=== PATIENT | male | born 1940 | race Caucasian/White ===

== ENCOUNTER 2017-05-27 20:54 | Emergency (ER) | payer MEDICARE ==
[~2017-05-27] VITALS: Ht 177.8 cm; Wt 89.8 kg
[~2017-05-27 20:54] MED LIST: GENTAMICIN O5 ML/BOT OP; HYDROCODONE1 TABLET PO
--- OUTSIDE RECORDS SUMMARY | 2017-05-27 21:02 | External Medical Summary Rpt | CCD ---
Author Author Conduent Organization Conduent Address Unknown Phone Unavailable Purpose Continuity of Care Document - through 2016
--- OUTSIDE RECORDS SUMMARY | 2017-05-27 21:02 | External Medical Summary Rpt | CCD ---
Author Author , JEANNE ANGEL Address Unknown Phone [email or web address] Immunization Name Date Rout CVX Reac Dose Comm Prov Is Faci e tion ent ider Refu lity Give sed n Infl 10-0 150 0.5 Hist KHAF No RITE uenz 3-20 mL oric TRIPP AID0 a 16 al AYMA 3938 Quad Info N Inj rmat ion - Sour ce Unsp ecif ied Td 03-0 Intr 9 999 Hist H149 No H149 (ti 4-19 amus oric lt), 97 cula al r Info adso rmat rbed ion - Sour ce Unsp ecif ied
--- OUTSIDE RECORDS SUMMARY | 2017-05-27 21:02 | External Medical Summary Rpt ---
Author Author NAHUMDREW Production, JEANNE Production Organization JEANNE Production Address Unknown Phone Unavailable Results Calcium.ionized [Mass/volume] in Serum or Plasma by Ion-selective membrane electrode (ISE) Observa Value Referen Units Interpr Notes Date tion ce etation Range Calcium.i 4.5 - 5.6 mg/dL No Performed Jan 04 onized informati at: CB 2016 1:50 [Mass/vol on in - [facility] PM ume] in source Serum or data [id number] Plasma by 0 [facility] membrane [id number] electrode Lab (ISE) Director: David Kelly PhD, Phone: [phone] 25-Hydroxyvitamin D [Mass/volume] in Serum or Plasma Observa Value Referen Units Interpr Notes Date tion ce etation Range 25-Hydrox 30.0 - ng/mL No Vitamin D Jan 04 yvitamin 100.0 informati 2016 1:50 D on in deficienc PM [Mass/vol source y has ume] in data been Serum or defined Plasma by the [place] [facility] e and an Endocrine Society practice guideline as alevel of serum 25-OH vitamin D less than 20 ng/mL (1,2).The Endocrine Society went on to further define vitamin Dinsuffic iency as a level between 21 and 29 ng/mL (2).1. IOM (Institut e of Medicine) . 2010. Dietary reference intakes for calcium and D. [place]: TheNation al Academies Press.2. Cris MF, Leann [place], [place] Bernard CARR, et al.Evalua tion, treatment , and preventio n of vitamin Ddeficien cy: an Endocrine Society clinical practiceg uideline. JCEM. 2010; 96(7):191 1-30.Perf ormed at: CB - [facility] [id number] [place], [place] [id number] Netsuite Developer: David Kelly PhD, Phone: [phone] Parathyrin.intact [Mass/volume] in Serum or Plasma Observa Value Referen Units Interpr Notes Date tion ce etation Range Parathyri 15 - 65 pg/mL No Performed Jan 04 n.intact informati at: CB 2017 1:50 [Mass/vol on in - [facility] PM ume] in source Serum or data [address] [address] Plasma 0 [place], [place] [id number] Netsuite Developer: David Kelly PhD, Phone: [phone] Renal function 2000 panel in Serum or Plasma Observa Value Referen Units Interpr Notes Date ti ce etation Range Albumin 3.4 - 5.0 gm/dL Normal No Jan 04 [Mass/vol informati 2016 1:50 ume] in on in PM Serum or source Plasma data Urea 7 - 18 mg/dL High No Jan 04 nitrogen informati 2016 1:50 [Mass/vol on in PM ume] in source Serum or data Plasma Calcium 8.5 - mg/dL Normal No Jan 04 [Mass/vol 10.1 informati 2016 1:50 ume] in on in PM Serum or source Plasma data Chloride 98 - 107 mmoL/L Normal No Jan 04 [Moles/vo informati 2016 1:50 lume] in on in PM Serum or source Plasma data Carbon 21.0 - mmoL/L Normal No Jan 04 dioxide, 32.0 informati 2016 1:50 total on in PM [Moles/vo source lume] in data Serum or Plasma Creatinin 0.70 - mg/dL High No Jan 04 e 1.30 informati 2017 1:50 [Mass/vol on in PM ume] in source Serum or data Plasma Estimated >60 ML/MIN No REFERENCE Jan 04 informati RANGE: 2017 1:50 glomerula on in >60 PM r source ML/MIN/1. filtratio data 73 SQUARE n rate METERSIf (GF this patient is -A merican, then multiply theresult by 1.210. Glucose 74 - 106 mg/dL High No Jan 04 [Mass/vol informati 2016 1:50 ume] in on in PM Serum or source Plasma data Potassium 3.5 - 5.1 mmoL/L Normal No Jan 04 informati 2017 1:50 [Moles/vo on in PM lume] in source Serum or data Plasma Sodium 136 - 145 mmoL/L Normal No Jan 04 [Moles/vo inform2016 1:50 lume] in on in PM Serum or source Plasma data Phosphate 2.4 - 4.9 mg/dL Normal No Jan 042016 1:50 [Moles/vo on in PM lume] in source Unspecifi data ed specimen Urate [Mass/volume] in Serum or Plasma Observa Value Referen Units Interpr Notes Date tion ce etation Range Urate 2.6 - 7.2 mg/dL Normal No Jan 04 [Mass/vol inform2016 1:50 ume] in on in PM Serum or source Plasma data CBC W Auto Differential panel in Blood Observa Value Referen Units Interpr Notes Date tion ce etation Range Basophils 0 - 0.2 K/MM3 Normal No Jan 042016 1:50 [#/volume on in PM ] in source Blood by data Automated count Basophils 0.1 - 2.0 % Normal No Jan 04 / informati 2016 1:50 leukocyte on in PM s in source Blood by data Automated count Eosinophi 0.0 - 0.4 K/mm3 Normal No Jan 04 ls informati 2016 1:50 [#/volume on in PM ] in source Blood by data Automated count Eosinophi 0.1 - % Normal No Jan 04 ls/100 12.0 informati 2016 1:50 leukocyte on in PM s in source Blood by data Automated count Granulocy 1.3 - 8.0 K/mm3 Normal No Jan 04 migel 2016 1:50 [#/volume on in PM ] in source Blood by data Automated count Granulocy 37.0 - % Normal No Jan 04 migel/100 80.0 informati 2016 1:50 leukocyte on in PM s in source Blood by data Automated count Hematocri 42.0 - % Low No Jan 04 t [Volume 52.0 informati 2016 1:50 on in PM Fraction] source of Blood data Hemoglobi 14.1 - g/dL Low No Jan 04 n 18.0 informati 2016 1:50 [Mass/vol on in PM ume] in source Blood data Lymphocyt 0.7 - 4.5 K/mm3 Normal No Jan 04 es 2016 1:50 [#/volume on in PM ] in source Unspecifi data ed specimen by Automated count Lymphocyt 10 - 50 % Normal No Jan 04 es informati 2016 1:50 [#/volume on in PM ] in source Unspecifi data ed specimen by Automated count Erythrocy 27 - 31.2 pg Normal No Jan 04 te mean inform2016 1:50 corpuscul on in PM ar source hemoglobi data n [Entitic mass] Erythrocy 31.8 - g/dl Normal No Jan 04 te mean 35.4 informati 2016 1:50 corpuscul on in PM ar source hemoglobi data n concentra tion [Mass/vol ume] by Automated count Erythrocy 82.2 - fl Normal No Jan 04 te mean 97.8 informati 2016 1:50 corpuscul on in PM ar volume source [Entitic data volume] by Automated count Monocytes 0.1 - 1.0 K/mm3 Normal No Jan 04 inform2016 1:50 [#/volume on in PM ] in source Blood by data Automated count Monocytes 1.7 - 9.3 % Normal No Jan 04 /100 informati 2016 1:50 leukocyte on in PM s in source Blood by data Automated count Platelet 7.4 - fl Normal No Jan 04 mean 10.4 informati 2016 1:50 volume on in PM [Entitic source volume] data in Blood by Automated count Platelets 142 - 424 K/mm3 Normal No Jan 04 inform2016 1:50 [#/volume on in PM ] in source Blood data Erythrocy 4.6 - 6.2 M/mm3 Low No Jan 04 migel informati 2016 1:50 [#/volume on in PM ] in source Amniotic data fluid Erythrocy 11.5 - % Normal No Jan 04 te 17.5 informati 2016 1:50 distribut on in PM ion width source [Entitic data volume] by Automated count Leukocyte 4.8 - K/MM3 Normal No Jan 04 s 10.8 informati 2016 1:50 [#/volume on in PM ] in source Blood data Creatinine [Mass/volume] in Urine Observa Value Referen Units Interpr Notes Date tion ce etation Range Creatinin 20 - 370 mg/dL Normal No Jan 04 e inform2016 1:50 [Mass/vol on in PM ume] in source Urine data Protein [Presence] in Urine Observa Value Referen Units Interpr Notes Date tion ce etation Range Protein 87.3 0.0 - mg/dL High No Jordan 30 15.0 informa 2017 [Presen tion in 1:50 PM ce] in source Urine data EK EKG 12 LEAD Observa Value Referen Units Interpr Notes Date tion ce etation Range Station No No No No Jan 22 daisy ECG informa informa informa informa 2016 tion in tion in tion in tion in 1:06 PM Study\. source source source source br\St. data data data data Elizabe th Edgewo[employer] d\.br\I nterpre tive Stateme nts\.br \Sinus rhythm with 1st degree A-V block.\ .br\Poo r R wave progres marc - probabl e normal variant \.br\Ab normal ECG\.br \NO OLD EKGS FOR COMPARI SON\.br \Electr onicall y Signed On 01-23-20 15:28:5 3 EDT by Mitchell ernst MD Glu Bed Observa Value Referen Units Interpr Notes Date tion ce etation Range GLU BED 150 70 - mg/dL High No Jan 22 100 informa 2016 tion in 12:59 source PM data BMP Observa Value Referen Units Interpr Notes Date tion ce etation Range Sodium 140 136 - mmol/L No No Jan 22 145 informa informa 2016 tion in tion in 2:13 PM source source data data Potassi 4.3 3.5 - mmol/L No No Jan 22 um 5.0 informa informa 2016 [Moles/ tion in tion in 2:13 PM volume] source source in data data Serum or Plasma Chlorid 103 98 - mmol/L No No Jan 22 e 107 informa informa 2016 tion in tion in 2:13 PM source source data data Carbon 25 22 - 29 mmol/L No No Jan 22 dioxide informa informa 2016 , total tion in tion in 2:13 PM source source [Moles/ data data volume] in Serum or Plasma Anion 12 7 - 16 mmol/L No No Jan 22 Gap informa informa 2016 tion in tion in 2:13 PM source source data data CALCIUM 10.0 8.8 - mg/dL No No Jan 22 .TOTAL 10.2 informa informa 2016 tion in tion in 2:13 PM source source data data Glucose 144 82 - mg/dL High No Darnell 18 Lvl 100 informa 2016 tion in 2:13 PM source data BUN 23 8 - 23 mg/dL No No Jan 22 informa informa 2016 tion in tion in 2:13 PM source source data data Creatin 2.10 0.67 - mg/dL High No Jan 22 ine 1.30 informa 2016 tion in 2:13 PM source data GFR Afr 38 No No No No Jan 22 Am informa informa informa informa 2016 tion in tion in tion in tion in 2:13 PM source source source source data data data data GFR Non 31 No No No No Jan 22 Afr Am informa informa informa informa 2016 tion in tion in tion in tion in 2:13 PM source source source source data data data data
--- OUTSIDE RECORDS SUMMARY | 2017-05-27 21:02 | External Medical Summary Rpt | CCD ---
Author Author , JEANNE ANGEL Address Unknown Phone [email or web address] Immunization Name Date Rout CVX Reac Dose [...]
--- OUTSIDE RECORDS SUMMARY | 2017-05-27 21:02 | External Medical Summary Rpt | CCD ---
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
--- OUTSIDE RECORDS SUMMARY | 2017-05-27 21:02 | External Medical Summary Rpt ---
[...] PM ume] in source Serum or data [id number] Plasma by 0 [facility] membrane [id number] electrode Lab (ISE) Director: David Kelly PhD, Phone: [phone] 25-Hydroxyvitamin D [Mass/volume] in Serum or Plasma Observa Value Referen Units Interpr Notes Date tion ce etation Range 25-Hydrox 30.0 - ng/mL No Vitamin D Jan 04 yvitamin 100.0 informati 2016 1:50 D on in deficienc PM [Mass/vol source y has ume] in data been Serum or defined Plasma by the [place] [facility] e and an Endocrine Society practice guideline [...] 96(7):191 1-30.Perf ormed at: CB - [facility] [id number] [place], [place] [id number] Computer Drafter: David Kelly PhD, Phone: [phone] Parathyrin.intact [Mass/volume] in Serum or Plasma Observa Value Referen Units Interpr Notes Date tion ce etation Range Parathyri 15 - 65 pg/mL No Performed Jan 04 n.intact informati at: CB 2017 1:50 [Mass/vol on in - [facility] PM ume] in source Serum or data [address] [id number] Plasma 0 [place], [place] [id number] Computer Drafter: David Kelly PhD, Phone: [phone] Renal function 2000 panel in Serum [...]
--- OUTSIDE RECORDS SUMMARY | 2017-05-27 21:02 | External Medical Summary Rpt | CCD ---
Author Author , JASSON ANGEL Address Unknown Phone [email or web address] Purpose Continuity of Care Document - 01-23-2016 [...]
[2017-05-27] MEDS ORDERED: METFORMIN HCL1000 MG PO (21:03)
[2017-05-27] MEDS ORDERED: AMLODIPINE BES10 MG PO (21:03)
[2017-05-27] MEDS ORDERED: TIMOLOL MALEATE10 M1 OP (21:03)
[2017-05-27] MEDS ORDERED: PRAMIPEXOLE0.125 M1 PO (21:04)
[2017-05-27] MEDS ORDERED: SERTRALINE25 MG PO (21:05)
[2017-05-27] MEDS ORDERED: FENOFIBRATE145 MG PO (21:06)
[2017-05-27] MEDS ORDERED: JANUVIA100 MG PO (21:06)
[2017-05-27] MEDS ORDERED: BRIMONIDINE TAR10 ML OP (21:07)
[2017-05-27 21:25] LABS: LYMPH % 30.9 % (10-50)
[2017-05-27 22:01] LABS: BUN 35 mg/dL (7-18)
[2017-05-27 22:02] LABS: GFR (ESTIMATED) 29 ML/MIN (>60)
--- NOTE | 2017-05-27 22:11 | Emergency Room Report ---
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 C COLLAR INPLACE, BACK BOARD. 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 N Clinical Suspician of Infection? N Mental Status: 1 - Regular (Normal Baseline) Sepsis Risk:Low Sepsis Risk Have you (or family members/close friends) recently traveled outside the [place]? N If Yes, where/when: Have you had exposure to infectious disease within the past month? N TB? Other? Specify: Source patient, RN notes reviewed, family, old records Exam Limitations no limitations Comment trip injury with head and facial injury w/o def loc - he has no focal neuro sx - Cardiac Chest Pain Chest pain indicative of cardiac No Timing/Duration this evening Severity moderate ALLERGIES Coded Allergies: Penicillins (Mild, 05/27/17) Home Medications Reported Medications Timolol Maleate (Timolol Maleate 10 Ml) 0.2 ML OP BID #10 Amlodipine Besylate (Amlodipine Besylate) 10 MG PO DAILY #30 METFORMIN HCL (Metformin 1000MG) 1,000 MG PO BID #30 PRAMIPEXOLE DI-HCL (Pramipexole Dihydrochloride) 0.125 MG PO DAILY #90 Sertraline Hcl (Sertraline HCl) 25 MG PO DAILY #30 FENOFIBRATE NANOCRYSTALLIZED (Fenofibrate) 145 MG PO DAILY #30 Sitagliptin Phosphate (Januvia 100MG) 100 MG PO DAILY #30 Brimonidine Tartrate 5 ML OP DAILY #10 History Medical History General CAD? No Angina: No [place]: No Hypertension? Yes Hyperlipidemia? No CHF? No DVT? No PE? No COPD? No Asthma? No Anemia? No GERD? No Gastric ulcers? No GI Bleed? No Hernia? No Hypothyroidism? No CVA? No Seizures? No Diabetes? Yes Insulin Dependent: No Insulin Pump: No Home FSBS? No Renal Insuffiency? No End Stage Renal Disease? No UTI? No Stones? Yes BPH? No GB Disease: No Nephritic Syndrome? No Asplenia? No Hepatitis? No Sickle Cell Disease? No Arthritis? No Migraines? No Cataracts? No Glaucoma? No MRSA? No HIV? No TB? No Anxiety? No Depression? No Cancer? No More? No Immunization Hx DT/Tetanus 1-4 YRS Surgical Hx Previous Surgery?Y Hemorrhoid LEFT BREAST 1961 PACEMAKER Family History Family Hx Diabetes Yes CAD Yes Hypertension No Hyperlipidemia No Cancer Yes TB No Social History Smoking Hx Smoker: Former Smoker Tobacco: No Packs/day < 1 Pack Alcohol Alcohol: No Drugs none Review of Systems All Other Systems Reviewed and Negative Constitutional denies fever Eyes denies drainage ENT denies: ear discharge. Respiratory denies cough, denies shortness of breath, denies wheezing Cardiovascular denies chest pain, denies palpitations, denies syncope Gastrointestinal denies abdominal pain, denies diarrhea, denies vomiting Genitourinary denies: dysuria, frequency, hesitancy, hematuria. Musculoskeletal see HPI, denies back pain, denies joint pain, neck pain Skin see HPI, other Psychiatric/Neurological see HPI, headache, denies seizure Physical Exam Vital Signs Vital Signs Date Time Temp Pulse Resp B/P Pulse O2 O2 Flow FiO2 Ox Delivery Rate 05/27 2055 98.5 70 18 177/98 98 - WBC >12,000 or <4,000 or 10% bands? 2 or more SIRS Criteria Met? B/P:177/98 MAP:124 Creatinine >2.0? UA output<0.5ml/kg/hr for 2 hrs? Platelet count >100,000? Lactate >2.0mmol/1? INR >1.2 or PTT > than 60 sec? Evidence of Organ Dysfunction? Provider documented clinical suspician of infection? N Sepsis Criteria Count: 0 Sepsis Risk: Low Sepsis Risk General Appearance no apparent distress Eye Exam - bilateral eye PERRL, bilateral eye EOMI Ear, Nose, Throat abrasions and swelling rt frontal area -no epistaxsis Neck limited range of motion, tender lateral Respiratory Status No: respiratory distress. Lung Sounds bilateral: lungs clear. 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 No Results/Orders Laboratory Tests 05/27/172114: Sodium 140, Potassium 4.3, Chloride 102, Carbon Dioxide 28, BUN 35 H, Creatinine 2.2 H, Estimated Creat Clear 36 L, Estimated GFR (MDRD) 29, Glucose 186 H, Calcium 9.4, Total Bilirubin 0.4, AST 16, ALT 25, Alkaline Phosphatase 48, Creatine Kinase 101, CK-MB (CK-2) Rel Index 1.2, CK and CKMB Interp 1.2, Troponin I < 0.02, Total Protein 7.6, Albumin 3.9, Globulin 3.7 H, Albumin/ Globulin Ratio 1.1, WBC 6.5, RBC 4.11 L, Hgb 12.0 L, Hct 37.1 L, MCV 90.3, RDW 13.6, Plt Count 233, MPV 7.8, Gran % 57.3, Gran # 3.7, Lymphocytes % 30.9, Monocytes % 7.6, Eosinophils % 3.5, Basophils % 0.7, Lymphocytes # 2.0, Monocytes # 0.5, Eosinophils # 0.2, Basophils # 0.0, PUBS MCHC 32.3, MCH 29.2 Current Medication Orders Sig/Pita Start time Last Medication Dose Route Stop Time Status Admin Sodium Chloride 10 ML PRN PRN 05/27 2115 AC IV 05/28 2109 Orders Procedure Date/time Status DIET-NOTHING BY MOUTH 05/[address] SINUS (MAX-FACIAL W/O CONT) 05/[address] HEAD W/O CONTRAST 05/[address] CERVICAL SPINE W/O CONT. 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 ST/Twave chgs XRAY/CT/US XRAY/CT/US 1 XRAY chest, pelvis XR interpretation by reviewed by me Xray Results no fracture seen XRAY/CT/US 2 CT head, C-spine, sinus CT interpretation by discussed w/radiologist Time results known: 2238 CT Results abnormal (see report) Departure Departure Time of Disposition 2225 Disposition DC/XFER from [facility] Clinical Impression Primary Impression: Skull fracture, non depressed Qualifiers: Encounter type: initial encounter Fracture type: closed Qualified Code: S02.91XA - Unspecified fracture of skull, initial encounter for closed fracture Secondary Impressions: Cervical strain, acute Qualifiers: Encounter type: initial encounter Qualified Code: S16.1XXA - Strain of muscle, fascia and tendon at neck level, initial encounter Nasal fracture Qualifiers: Encounter type: initial encounter Fracture type: closed Qualified Code: S02.2XXA - Fracture of nasal bones, initial encounter for closed fracture Renal insufficiency Condition STABLE Referrals Peña Akbar MD (Family) discussed with trauma ED Critical Care Critical Care Yes Time spent 30-74 min Vital system(s) involved: trauma I was present at bedside for Coordinating pt's care, During my initial exam, Reviewing lab results, Reviewing old records, Discussing pt condition, For re- examinations, Examining radiographs at 6984
[2017-05-27 23:58] VITALS: BP 181/84
--- NOTE | 2017-05-28 04:41 | RADIOLOGY REPORT PS360 ---
PELVIS AP ONLY HISTORY: Fall with injury and pain FALL ORDERING PHYSICIAN: Jesus Lo MD PATIENT AGE: 77 years COMPARISON: None FINDINGS: No acute fracture or dislocation. Mild osteoarthritis of the hips. IMPRESSION: No acute finding
--- NOTE | 2017-05-28 04:41 | RADIOLOGY REPORT PS360 ---
CHEST-PORTABLE HISTORY: Pain following injury FALL ORDERING PHYSICIAN: Jesus Lo MD PATIENT AGE: 77 years COMPARISON: 05/07/2011 FINDINGS: There is mild cardiomegaly with cardiac pacemaker device present. There is mild prominence of the pulmonary vessels suggesting mild CHF. Chronic changes are present in the left CP angle and right midlung. No lobar consolidation or pneumothorax. No acute bony anomalies. IMPRESSION: 1. Mild CHF. 2. Chronic changes.
--- NOTE | 2017-05-28 05:00 | RADIOLOGY REPORT PS360 ---
CT HEAD W/O CONTRAST HISTORY: Headache/pain/concussion/contusion/hematoma. Soft tissue swelling above left eye following injury FALL ORDERING PHYSICIAN: Jesus Lo MD PATIENT AGE: 77 years COMPARISON: None TECHNIQUE: Axial images obtained without contrast. Brain and bone windows reviewed. FINDINGS: No midline shift, mass effect, intracranial hemorrhage, hydrocephalus, or extra-axial fluid collection is evident. There is generalized atrophy with periventricular ischemic gliotic change. No intra or extra-axial hemorrhage. Comminuted nasal bone fracture. Or soft tissue swelling in the right supraorbital region consistent with hematoma. There is a faint lucency extending from cephalad to caudad in the right temporal bone posteriorly and inferiorly consistent with nondisplaced skull fracture. No underlying intracranial hemorrhage. IMPRESSION: 1. No acute intracranial hemorrhage. 2. Nondepressed right temporal bone fracture. 3. Nasal bone fracture. 4. Right supraorbital hematoma
--- NOTE | 2017-05-28 05:04 | RADIOLOGY REPORT PS360 ---
CT CERVICAL SPINE W/O CONT INDICATION: Neck pain following injury FALL ORDERING PHYSICIAN: Jesus Lo MD PATIENT AGE: 77 years COMPARISON: None TECHNIQUE: Axial images are obtained without contrast. Sagittal and coronal reformatted images are reviewed as well. FINDINGS: Normal alignment. No fracture or dislocation. There is multilevel degenerative disc disease with disc osteophyte complexes and facet joint arthropathy resulting in degrees of neural foraminal and central canal narrowing. There is also extensive multilevel anterolateral bridging osteophyte formation consistent with DISH of the cervical spine. No prevertebral soft tissue swelling Lung apices are clear. IMPRESSION: 1. No acute fracture. 2. Extensive cervical spondylosis with degenerative disc disease and facet arthropathy. 3. DISH of the cervical spine
--- NOTE | 2017-05-28 05:09 | RADIOLOGY REPORT PS360 ---
CT SINUS (MAX-FACIAL W/O CONT) CLINICAL INDICATION: Facial pain and swelling following injury, concussion, hematoma FALL ORDERING PHYSICIAN: Jesus Lo MD PATIENT AGE: 77 years COMPARISON: None TECHNIQUE:Axial, sagittal, and coronal images are generated and reviewed without contrast COMPARISON: None FINDINGS:Supraorbital hematoma is present on the right. Fracture involves the tip of the nasal bone. No sinus air-fluid level. Mild mucosal thickening involves the ethmoid sinuses. Artifact is present patient's dental work.. There is a linear lucency in the right posterior temporal bone which may be due to nondisplaced fracture versus asymmetric suture. The orbits have an unremarkable appearance. IMPRESSION: 1. Nasal bone fracture. 2. Right supraorbital hematoma 3. Possible right temporal bone
== END 2017-05-27 23:55 | disposition short-term general hospital (02) ==
LOC: ER 20:54
PROVIDERS: Emergency Medicine
DX: S02.19XA Other fracture of base of skull, initial encounter for closed fracture (principal); S02.2XXA Fracture of nasal bones, initial encounter for closed fracture; W01.10XA Fall on same level from slipping, tripping and stumbling with subsequent striking against unspecified object, initial encounter; Y92.480 Sidewalk as the place of occurrence of the external cause; S16.1XXA Strain of muscle, fascia and tendon at neck level, initial encounter; N28.9 Disorder of kidney and ureter, unspecified; Z87.891 Personal history of nicotine dependence; I10 Essential (primary) hypertension

== ENCOUNTER → 2017-06-03 | Outpatient (CLI) | payer MEDICARE ==
[~2017-06-03] MED LIST changes: +AMLODIPINE BES10 MG PO; +BRIMONIDINE TAR10 ML OP; +FENOFIBRATE145 MG PO; +JANUVIA100 MG PO; +METFORMIN HCL1000 MG PO; +PRAMIPEXOLE0.125 M1 PO; +SERTRALINE25 MG PO; +TIMOLOL MALEATE10 M1 OP
--- NOTE | 2017-06-03 16:59 | RADIOLOGY REPORT PS360 ---
WRIST-3 VIEWS-RT HISTORY: Pain following injury RT WRIST FX ORDERING PHYSICIAN: Peña Akbar MD PATIENT AGE: 77 years COMPARISON: None FINDINGS: There is an oblique fracture involving the distal radius at the styloid process region extending into the articular surface with minimal separation of the fracture fragments. There is some bony expansion of the distal aspect of the distal radius also suggesting an old injury. Osteoarthritic changes are present first metacarpal carpal joint. Lucency is noted at the distal aspect of the navicular probably related to bony overlap. IMPRESSION: 1. Minimally displaced oblique fracture distal radius at the styloid region with interarticular extension 2. Osteoarthritic changes. 3. Suspect old fracture of the distal radius as well. 4. Probable bony overlap at the navicular simulating a fracture which may be confirmed with follow-up and/or CT.
== END ==
LOC: RAD 16:14
DX: S52.531A Colles' fracture of right radius, initial encounter for closed fracture (principal)

== ENCOUNTER → 2017-06-07 | Outpatient (CLI) | payer MEDICARE ==
--- NOTE | 2017-06-07 10:51 | RADIOLOGY REPORT PS360 ---
WRIST-3 VIEWS-RT HISTORY: Follow-up fracture FX RT RADIUS ORDERING PHYSICIAN: RANDI AUSTIN MD PATIENT AGE: 77 years COMPARISON: 06/03/2017 FINDINGS: A cast has been placed stabilizing the nondisplaced distal radial fracture with intra-articular involvement.. There is good alignment. 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 IMPRESSION: Good alignment distal radial fracture status post closed reduction
== END ==
LOC: RAD 09:51
DX: S52.514A Nondisplaced fracture of right radial styloid process, initial encounter for closed fracture (principal)

== ENCOUNTER → 2017-06-13 | Outpatient (CLI) | payer MEDICARE ==
--- NOTE | 2017-06-13 13:46 | RADIOLOGY REPORT PS360 ---
WRIST-3 VIEWS-RT HISTORY: Follow-up fracture FU FX RT RADIUS ORDERING PHYSICIAN: RANDI AUSTIN MD PATIENT AGE: 77 years COMPARISON: 06 07 17 FINDINGS: Study is obtained through cast. There is been no significant change in the intra-articular fracture involving the distal radius at the base of the styloid process. There remains good bony alignment. Fracture lines of bony detail obscured by the overlying cast. IMPRESSION: No change in good alignment closed reduction distal radius fracture
== END ==
LOC: RAD 12:09
DX: S52.514D Nondisplaced fracture of right radial styloid process, subsequent encounter for closed fracture with routine healing (principal)